=== PATIENT | male | born 1965 | race Caucasian/White ===

== ENCOUNTER 2017-08-08 13:07 | Emergency (ER) | payer OTHER ==
[~2017-08-08] VITALS: Ht 177.8 cm; Wt 128.7 kg
[2017-08-08 14:06] LABS: HEMATOCRIT 39.8 % (38.0-50.0); MCH 29.6 PG (29.0-34.0); MCHC 33.9 G/DL (30.0-36.0); MCV 87.3 FL (86-99); MEAN PLAT.VOLUME 9.5 uM^3 (9.0-12.4); PLATELET COUNT 240 K/uL (156-360); RBC DIS.WIDTH-CV 13.1 % (11.8-14.6); RBC DIS.WIDTH-SD 42.4 % (39-53); RED BLOOD COUNT 4.56 M/uL (4.00-5.50); WHITE BLOOD COUNT 9.7 K/uL (4.1-10.2)
[2017-08-08 14:18] LABS: CHLORIDE 107 mEq/L (99-109)
[2017-08-08 14:19] LABS: POTASSIUM 3.4 mEq/L (3.7-5.4); SODIUM 137 mEq/L (136-147)
[2017-08-08 14:20] LABS: GLUCOSE 104 mg/dL (70-99)
[2017-08-08 14:22] LABS: ANION GAP 6 MEQ/L (2-14)
[2017-08-08 14:24] LABS: GFR ESTIMATE (CALCULATED) > 59 mL/min/
[2017-08-08 14:25] LABS: UREA NITROGEN (BUN) 17 mg/dL (9-23)
[2017-08-08 17:35] VITALS: BP 149/86
== END 2017-08-08 17:37 | disposition home or self-care (01) ==
LOC: EME 13:07
DX: J06.9 Acute upper respiratory infection, unspecified (principal); J98.01 Acute bronchospasm
CPT/HCPCS: 71020; 80048; 85027; 94640; 99281; 99284

== ENCOUNTER → 2018-03-06 | Outpatient (CLI) | payer OTHER | END | disposition home or self-care (01) | LOC: RES 09:46 | DX: J40 Bronchitis, not specified as acute or chronic (principal) | CPT/HCPCS: 94070 ==